=== PATIENT | female | born 1935 | race Caucasian/White ===

== ENCOUNTER 2016-08-16 12:01 | Inpatient (IN) | payer MEDICARE, BC ==
[~2016-08-16] VITALS: Ht 162.6 cm; Wt 95.0 kg
--- NOTE | ~2016-08-16 | ECH ---
Transthoracic Echocardiography Report (TTE) Demographics Patient Name JENNIFER CABALLERO Date of Study 08/16/2016 Patient Number [id number] Visit Number [id number] Date of 1935 Room Number 422 Accession Number [id number] Gender Female Age 80 year(s) Referring Jen Lentz MD Grain Grader Meliza Rogers [facility] Physician Physician Interpreting Mac Crenshaw MD Shift Lab Technician Physician Supervising Ordering Physician Jen Lentz MD, MD/P Nurse Stress Community [facility] Counselor Conclusions Summary Technically fair exam. The estimated left ventricular ejection fraction is 60-65%. Moderate concentric left ventricular hypertrophy. Diastolic assessment reveals Grade I diastolic dysfunction. Mild mitral regurgitation by color Doppler. Procedure Type of Study TTE procedure:Echo Complete SF. Procedure Date Date: 08/16/2016 Start: 03:14 Technical Quality: Fair due to body habitus. Indications:Chest pain and Bradycardia. Appropriate Use Criteria: 9 Height: 64 inches Weight: 201 pounds BSA: 1.96 m Rhythm: Sinus with bundle branch block HR: 66 bpm BP: 153/84 mmHg M-Mode/2D Measurements LV Diastolic Dimension: 3.41 cm LV Systolic Dimension: 1.77 cm LV Septum Diastolic: 1.59 cm LV PW Diastolic: 1.5 cm AO Root Dimension: 2.58 cm Cardiac Output: 2.84 l/min LA Dimension: 2.89 cm Cardiac Index: 1.45 l/min*m RV Diastolic Dimension: 2.94 cm LA volume index: 14 ml/m LVOT: 1.46 cm LVOT VTI: 25.69 cm RV Base: 3.2 cm LV Stroke volume: 42.99 ml RV Mid: 2.3 cm LV Stroke volume index: 21.93 ml/m RV Length: 6.6 cm Doppler Measurements AV Peak Velocity: 1.3 m/s MV Peak E-Wave: 0.51 m/s AV Peak Gradient: 6.76 mmHg MV Peak A-Wave: 0.75 m/s AV Mean Gradient: 3.81 mmHg MV E/A Ratio: 0.68 LVOT Peak Velocity: 1.24 m/s MV P1/2t: 62.1 msec AV Area (Continuity):1.64 cm MV Deceleration Time: 186.5 msec MV Area (PHT): 3.54 cm RA Area: 11.23 cm Findings Left Ventricle The left ventricle is normal in size . Moderate concentric left ventricular hypertrophy. Diastolic assessment reveals Grade I diastolic dysfunction. Right Ventricle Normal right ventricle structure and function. Left Atrium Normal left atrial size. Right Atrium Normal right atrial size. Mitral Valve Normal mitral valve structure and function. Mild mitral regurgitation by color Doppler. Aortic Valve The aortic valve is mildly sclerotic. Tricuspid Valve Normal tricuspid valve structure and function. Pulmonic Valve The pulmonic valve is not well visualized. Pericardial Effusion No evidence of pericardial effusion. Miscellaneous Visualized portions of the aortic root and ascending aorta appear normal in size. Pleural Effusion No evidence of pleural effusion. Signature
--- NOTE | 2016-08-18 08:55 | HP ---
ADMIT: 08/16/2016 RM/LOC: 422 [facility] MR#: [id number] [id number] [place], [place] [address] JENNIFER CABALLERO Joann [address] [address] History and Physical SEX: F AGE: 80 : 1935 DATE OF SERVICE: CHIEF COMPLAINT: Lightheadedness, near syncope, and diaphoresis with chest pain. HISTORY OF PRESENT ILLNESS: This 80-year-old, female patient, who lives independently at home. She cared for in our office by Dr. Ibrahim. Family states this morning she was awakened around 1 in the morning with a tight feeling around the upper abdomen and lower chest. She got up out of bed, took some Tums and that went away out in a few minutes, so she thought was indigestion. She did not have any nausea or diaphoresis associated with this. She felt a little bit short of breath. This morning she got up, felt okay, was getting ready to go down and get her hair cut and while she was getting her hair cut, she started feeling lightheaded like she is going to faint, broke out in a cold sweat. The stylist said she was very pale. Family members were called, they came from [place] and she was brought up here to the office. By the time she arrived here at the office, she was not having any pain. No nausea, no diaphoresis, no shortness of breath. She felt fine. She has a prior history of similar episode with associated bradycardia and presyncope. She has no history of coronary artery disease. She does have significant risk factors. She has obstructive sleep apnea but she is not wearing her CPAP. She has hypertension and hyperlipidemia. EKG in the office did show incomplete left bundle-branch block with some ST-T changes, possible myocardial ischemia. She is admitted to the hospital at this time to trend enzymes for presyncope, rule out acute coronary syndrome. PAST MEDICAL HISTORY: She was last hospitalized here in 2011 with nausea and weakness. Prior to that, she had a cholecystectomy in 2004 at [place]. Postoperative to the cholecystectomy in 2004, she had some bradycardia but no other problems. She has had a section x2 many years ago, hysterectomy when she was in her 50s. She has had prior gastroscopy and colonoscopy. She has had a previous colon polyp removed. She has had history of GERD. Medical conditions include hypertension, hyperlipidemia, gastroesophageal reflux, osteoarthritis, degenerative lumbar disk disease, lumbar spinal stenosis, mild COPD, obstructive sleep apnea along with morbid obesity. CURRENT MEDICATIONS: 1. Crestor 10 mg daily. 2. Hydroxyzine 25 mg p.r.n. 3. Valsartan and hydrochlorothiazide 80/12.5 mg 1 daily. 4. Catapres 0.1 mg t.i.d. 5. Aldactone 25 mg daily. 6. Reglan 10 mg at bedtime. 7. Nexium 40 mg daily. 8. Lasix 20 mg daily. 9. Coreg 12.5 mg b.i.d. ADMIT: 08/16/2016 RM/LOC: 422 [facility] MR#: [id number] [id number] [place] [id number] [facility] [place] [address] History and Physical SEX: F AGE: 80 : 1935 10.Calcium and vitamin supplements. 11.Aspirin 81 mg daily. SOCIAL HISTORY: She is . Does not use tobacco, never has. No alcohol consumption. FAMILY HISTORY: Positive for coronary artery disease and hypertension. REVIEW OF SYSTEMS: GENERAL: Not been having any problems until the above related issues. Rest review of systems unremarkable other than noted above. She is a borderline type 2 diabetic with diet control of her diabetes. PHYSICAL EXAMINATION: GENERAL: An 80-year-old female. She is alert, cooperative, and oriented x3. VITAL SIGNS: In the office stable. Blood pressure is 110/68, pulse 63 and regular, temp 97.1, height is 5 feet 3 inches, weight is 201 pounds, O2 saturation 97% on room air. HEENT: Eyes; PERRLA. EOMs intact. TMs clear. Throat is moist, not inflamed. NECK: Supple. No lymphadenopathy. No thyromegaly. LUNGS: Clear to auscultation. Respirations not labored. HEART: Regular rate. No lifts, thrills, heaves, or murmur. BREASTS: Not examined. ABDOMEN: Obese. No organomegaly or tenderness. and RECTAL: Deferred. EXTREMITIES: +1 edema. Chronic venous stasis type edema. IMPRESSION: 1. Presyncope with diaphoresis, rule out acute coronary syndrome. 2. Hypertension. 3. Obstructive sleep apnea. 4. Hyperlipidemia. 5. Gastroesophageal reflux. 6. Diabetes mellitus type 2, diet controlled. 7. Obesity. 8. History of cholecystectomy. 9. History of lumbar spinal stenosis. PLAN: We will admit to telemetry. Serial EKG and enzymes. Romel Li MD/ gabi JOB #: [id number] CC: Romel Li, Attending Physician John Ibrahim, Family Physician
[2016-08-21] MEDS ORDERED: SPIRONOLACTONE25 MG PO (06:17)
[2016-08-21] MEDS ORDERED: VALSARTAN-HCTZ1 EAC4 PO (06:17)
[2016-08-21] MEDS ORDERED: NEXIUM40 MG PO (06:17)
[2016-08-21] MEDS ORDERED: CALCIUM500 MG PO (06:18)
[2016-08-21] MEDS ORDERED: ASPIR 8181 MG PO (06:18)
[2016-08-21] MEDS ORDERED: ROSUVASTATIN CA10 MG PO (06:19)
[2016-08-21] MEDS ORDERED: OMEGA-3 DPS1000 MG PO (06:19)
[2016-08-21] MEDS ORDERED: DAILY MULTIPLE1 EAC1 PO (06:19)
[2016-08-21] MEDS ORDERED: REGLAN-DPS10 MG PO (06:19)
[2016-08-21] MEDS ORDERED: CATAPRES-DPS0.1 MG PO (06:20)
[2016-08-21] MEDS ORDERED: CARVEDILOL12.5 MG PO (06:21)
[2016-08-21] MEDS ORDERED: LEVAQUIN DPS500 MG PO (06:21)
[2016-08-21] MEDS ORDERED: ANTIVERT-DPS25 MG PO (06:21)
[2016-08-21] MEDS ORDERED: DELTASONE DPS10 MG PO (06:24)
--- NOTE | 2016-08-27 07:44 | CO ---
ADMIT: 08/16/2016 RM/LOC: 422 [facility] MR#: [id number] [id number] [place], [place] [id number] JENNIFER CABALLERO [address] [address] Consultation SEX: F AGE: 80 : 1935 DATE OF CONSULTATION: 08/19/2016 ATTENDING PHYSICIAN: Romel Li MD CONSULTING PHYSICIAN: Marcos Romano MD HISTORY OF PRESENT ILLNESS: Jennifer is 80 years old. She was admitted this time with development of dizziness, characterized by off-balance sensation and intermittent vertigo associated with mild nausea. She states her symptoms began when in her beauty parlor chair and laid back she started to feel "funny," progressed to a dizziness, worsened when she sat up. She experienced some nausea and has had disequilibrium, not allowing ambulation without assistance. Since hospitalization, she has had CT scanning of the brain which showed no intracranial abnormalities to suggest neoplasm, increased pressure, or cerebral stroke. Mastoid abnormalities were present with inflammation noted to the mucosa bilaterally, left side more so than right, does not appear consolidated. I have reviewed the MRI scan with Dr. Ruby Simpson. The paranasal sinuses appear clear. PHYSICAL EXAMINATION: HEENT: Ear canals have a small amount of cerumen but able to visualize tympanic membranes and middle ears adequately, which show no middle ear inflammation, no middle ear effusion. Her nose, mouth, and pharynx are clear. There is good symmetry in structure and function. No evidence of cranial nerve dysfunction. Her pupils are equal. Extraocular movements intact. I cannot identify distinct spontaneous nor gaze nystagmus and Jerome-Hallpike. Position testing elicits no positional nystagmus (the patient is presently on labyrinthine suppressants, may be hindering response during examination). IMPRESSION: 1. History and exam consistent with labyrinthitis. 2. MRI scan showing mastoid inflammation but without evidence of consolidation or middle ear disease. Recommend treat as acute labyrinthitis, continuing labyrinthine suppressants with meclizine; and in light of the abnormal findings on MRI, continue antibiotic coverage. She is presently on Levaquin intravenously, which can be changed to oral therapy at discharge. I anticipate gradual improvement in balance disturbance over the next several weeks. She is having no hearing change in either ear at this time; therefore, I did not feel further otoneurologic examination was needed. Marcos Romano MD/ gabi JOB #: [id number] CC: Romel Li MD, Attending Physician John Ibrahim MD, Family Physician
--- NOTE | 2016-09-17 14:17 | DS ---
ADMIT: 08/16/2016 RM/LOC: 422 [facility] MR#: [id number] [address] [address] JENNIFER CABALLERO [facility] [address] General Discharge Summary SEX: F AGE: 80 : 1935 ADMISSION DATE: 08/16/2016 DISCHARGE DATE: 08/20/2016 ADMITTING DIAGNOSIS: As per history and physical. FINAL DIAGNOSES: 1. Acute labyrinthitis. 2. Vertigo. 3. Chronic obstructive pulmonary disease. 4. Bilateral mastoiditis. 5. Type 2 diabetes. 6. Syncope and collapse due to severe vertigo. 7. Obstructive sleep apnea. 8. Hypertension. 9. Hyperlipidemia. 10.Obesity. 11.Chronic gastroesophageal reflux disease/esophageal reflux. 12.Generalized osteoarthritis. 13.Advanced degenerative disk disease of lumbosacral spine. 14.Lumbar spinal stenosis. COMPLICATIONS: None. OPERATIONS: None. CLINICAL HISTORY: The patient is an 80-year-old, white female, who is admitted to [place] after being seen in our office complaining of a near- syncopal episode with extreme vertigo and lightheadedness with associated diaphoresis and a sensation of tightness in her chest. Given her near-syncope and chest tightness, it was felt best to admit for cardiac monitoring and to rule out acute coronary syndrome or other ischemic cardiac condition. For further details of her clinical history as well as her past medical history and pertinent findings on physical exam, please see dictated history and physical. Please also see dictated ENT consultation as well as dictated Neurology consultation. LABORATORY AND X-RAY SUMMARY FROM THIS ADMISSION: For complete details of lab, please see cumulative laboratory summary included in the chart. Her initial CBC showed an elevated white count of 13,100, hemoglobin 15, hematocrit 45. Repeat CBC on her 3rd hospital day showed a white count of 5500, hemoglobin 13.6, hematocrit 41.2. On admission, her sodium was 139, potassium 3.7, BUN was 16, with a creatinine of 0.9, blood sugar 114. LFTs were normal. On admission, her cardiac enzymes were normal with normal CPK, normal CK-MB, and normal troponin I. Serial cardiac enzymes were negative x3. Her hemoglobin A1c is mildly elevated at 6.5, her CRP was elevated at 0.66. Urinalysis on admission was clear. An MRI of her head was obtained because of her vertigo and dizziness. She was noted to have age-related vascular changes, no evidence of acute stroke. She was found to have bilateral mastoiditis, which was felt to be the trigger for her acute labyrinthitis. ADMIT: 08/16/2016 RM/LOC: 422 [facility] MR#: [id number] [address] [address] JENNIFER CABALLERO [facility] [place] [address] General Discharge Summary SEX: F AGE: 80 : 1935 Chest x-ray showed lung stringer to be clear, no acute findings. Her echocardiogram showed an EF of 60% to 65%, mild concentric left ventricular hypertrophy, grade 1 diastolic dysfunction, mild mitral regurgitation, but no other significant valvulopathy and ejection fraction was well preserved. Her serial EKG showed left bundle-branch block, otherwise normal sinus rhythm. HOSPITAL COURSE: The patient was admitted with a near-syncopal episode. Following admission, she had increasing difficulty with vertigo and dizziness and was ultimately felt that her near-syncope was triggered by extreme vertigo. Her cardiac studies including serial cardiac enzymes, EKGs, and echocardiogram failed to reveal any cardiac abnormality. In addition to the vertigo and dizziness, she was having headache and did have emesis following admission due to the vertigo. She described her vertigo as a bad case of motion sickness. MRI of the head did show evidence of bilateral mastoiditis. For this reason, she was started on Levaquin, she was also started on steroids to settle down the acute mastoid inflammation and was given Antivert. Dr. Romano was consulted for the mastoiditis and labyrinthitis, he agreed with our plan of treatment. By her 4th hospital day, she was feeling better, headache was significantly improved, dizziness was resolving, and her nausea was resolved. Ultimately, we dismissed her to home on 08/20/2016, her 5th hospital day, she was feeling much better with no nausea and vomiting, headache had resolved, and she could get up and move around with no vertigo, she could ambulate safely. The patient was dismissed to home on 08/20/2016, with planned follow up in our office in 10 to 14 days. DISCHARGE MEDICATIONS: Her medications at dismissal included: 1. Aldactone 25 mg daily. 2. Antivert 25 mg q.i.d. 3. Baby aspirin 81 mg daily. 4. Catapres 0.1 mg a half tablet b.i.d. 5. Coreg 6.25 mg b.i.d. 6. Crestor 5 mg at bedtime. 7. Diovan 80/12.5 mg one daily. 8. [place]-3 fish oil 1000 mg at bedtime. 9. Oyster Shell Calcium 500 mg daily. 10.Reglan 10 mg at bedtime for chronic reflux. 11.Multivitamin 1 daily. ADMIT: 08/16/2016 RM/LOC: 422 [facility] MR#: [id number] [address] [place] [id number] JENNIFER CABALLERO [address] [place] [address] General Discharge Summary SEX: F AGE: 80 : 1935 12.Levaquin 500 mg daily for 15 days. 13.Prednisone 10 mg. Beginning with 30 mg daily for 5 days, then 20 mg daily for 5 days, then 10 mg daily for 5 days, a 15-day tapered dose of prednisone as well. DISCHARGE INSTRUCTIONS: She is to follow up in our office in 10 to 14 days. If any recurrent syncope, extreme vertigo, or chest discomfort, she is to let us know. CONDITION AT DISCHARGE: Stable and improved. PROGNOSIS: [place] to be good. John Ibrahim MD/ josselinel JOB #: [id number] CC: Romel Li MD, Attending Physician John Ibrahim MD, Family Physician
== END 2016-08-20 11:25 | disposition home or self-care (01) | DRG 149 ==
LOC: 4PCU 12:01
PROVIDERS: ADMIT Family Medicine
DX: H83.09 Labyrinthitis, unspecified ear (principal); J44.9 Chronic obstructive pulmonary disease, unspecified; E11.9 Type 2 diabetes mellitus without complications; R55 Syncope and collapse; G47.33 Obstructive sleep apnea (adult) (pediatric); I10 Essential (primary) hypertension; E78.5 Hyperlipidemia, unspecified; I44.7 Left bundle-branch block, unspecified; E66.9 Obesity, unspecified; K21.9 Gastro-esophageal reflux disease without esophagitis; M19.90 Unspecified osteoarthritis, unspecified site; M51.36 Other intervertebral disc degeneration, lumbar region; M48.06 Spinal stenosis, lumbar region; Z82.49 Family history of ischemic heart disease and other diseases of the circulatory system; Z68.34 Body mass index [BMI] 34.0-34.9, adult